=== PATIENT | female | born 1955 | race Asian ===

== ENCOUNTER → 2017-06-22 | Outpatient (CLI) | payer OTHER ==
[~2017-06-22] MED LIST: AMLO5TAB2 PO; BENZ-51 PO; IBUP-2070 PO; OSEL75CA17 PO
== END | disposition home or self-care (01) ==
LOC: OIH 13:25
PROVIDERS: ATTEND Internal Medicine Cardiovascular Disease
DX: Z13.6 Encounter for screening for cardiovascular disorders (principal)
CPT/HCPCS: 75571